=== PATIENT | male | born 1995 | race Caucasian/White ===

== ENCOUNTER 2018-10-13 20:15 | Emergency (ER) | payer OTHER ==
[~2018-10-13] VITALS: Ht 177.8 cm; Wt 86.4 kg
[2018-10-13] MEDS ORDERED: NAPROXEN 250 MG TAB PO ONE (21:45)
[2018-10-13] MEDS ORDERED: METOCLOPRAMIDE 10 MG TAB PO ONE (21:45)
[2018-10-13] MEDS ORDERED: ACETAMINOPHEN 325 MG TAB PO ONE (21:45)
[2018-10-13 22:23] LABS: BASO % 0.1 % (0.0-1.0); EOS % 0.4 % (0.0-3.0); HEMATOCRIT 39.9 % (42.0-52.0); HEMOGLOBIN 13.5 g/dl (13.5-17.5); LYMPH # 1.1 10^3/uL (1.5-6.5); LYMPH % 15.9 % (24.0-44.0); MEAN CORPUSCULAR HEMOGLOBIN 29.2 pg (27.0-33.0); MEAN CORPUSCULAR HGB CONC 33.8 g/dl (32.0-36.5); MEAN CORPUSCULAR VOLUME 86.4 fl (80.0-96.0); MONO # 0.7 10^3/uL (0.0-0.8); MONO % 10.1 % (0.0-5.0); NEUTROPHILS # 5.1 10^3/uL (1.8-7.7); NEUTROPHILS % 73.2 % (36.0-66.0); PLATELET COUNT, AUTOMATED 210 10^3/uL (150-450); RED BLOOD COUNT 4.62 10^6/uL (4.30-6.10); WHITE BLOOD COUNT 6.9 10^3/uL (4.0-10.0)
[2018-10-13 22:43] LABS: BLOOD UREA NITROGEN 13 MG/DL (7-18); CALCIUM LEVEL 8.1 MG/DL (8.5-10.1); CARBON DIOXIDE LEVEL 22 MEQ/L (21-32); CHLORIDE LEVEL 105 MEQ/L (98-107); CREATININE FOR GFR 0.94 MG/DL (0.70-1.30); GLOMERULAR FILTRATION RATE > 60.0 (>60); GLUCOSE, FASTING 134 MG/DL (70-100); POTASSIUM SERUM 3.4 MEQ/L (3.5-5.1); SODIUM LEVEL 135 MEQ/L (136-145)
[2018-10-13 22:57] LABS: INFLUENZA A AMPLIFICATION NEGATIVE (NEGATIVE); INFLUENZA B AMPLIFICATION NEGATIVE (NEGATIVE)
[2018-10-13] MEDS ORDERED: FLAG500T PO (23:46)
[2018-10-13] MEDS ORDERED: CIPR-249 PO (23:46)
[2018-10-14 00:25] VITALS: BP 117/70
[2018-10-14] MEDS ORDERED: metroNIDAZOLE (FLAGYL) 500 MG TAB PO ONE (00:30)
[2018-10-14] MEDS ORDERED: CIPROFLOXACIN 500 MG TAB PO ONE (00:30)
== END 2018-10-14 00:43 | disposition home or self-care (01) ==
LOC: M ED 20:15
DX: R50.9 Fever, unspecified (principal); R19.7 Diarrhea, unspecified

== ENCOUNTER 2021-02-11 09:01 | Emergency (ER) | payer OTHER ==
[~2021-02-11] VITALS: Ht 177.8 cm; Wt 88.1 kg
[2021-02-11 09:01] VITALS: BP 141/79
[~2021-02-11 09:01] MED LIST: CIPR-249 PO; FLAG500T PO
[2021-02-11] MEDS ORDERED: CLAR5TAB7 PO (09:16)
[2021-02-11] MEDS ORDERED: AFRISPR3 (10:21)
== END 2021-02-11 10:39 | disposition home or self-care (01) ==
LOC: M ED 09:01
DX: J06.9 Acute upper respiratory infection, unspecified (principal)